=== PATIENT | male | born 1980 | race Caucasian/White ===

== ENCOUNTER 2016-09-24 22:17 | Emergency (ER) | payer OTHER ==
[~2016-09-24] VITALS: Ht 193 cm; Wt 140.6 kg
[2016-09-24 22:20] VITALS: BP 135/82
--- NOTE | 2016-09-24 23:14 | PHYS DOC ---
Past History Past Medical History: High Cholesterol Alcohol Use: Occasionally Drug Use: None Adult General Chief Complaint Chief Complaint: ABDOMINAL PAIN HPI HPI 36-year-old male presenting with a chief complaints of abdominal pain. He has had abdominal pain in the right lower quadrant intermittently for 5 days. He had a episode today while driving that lasted for a few minutes. Upon arrival to the emergency department his symptoms were improving and on my examination his pain and improved down to approximately a 3 out of 10. He describes pain is sharp intermittent present for 5 days nonradiating and without associated symptoms. He denies hematuria polyuria dysuria. He denies fevers chills nausea or vomiting. Review of systems is negative for chest pain shortness of breath nausea or vomiting. All other review of systems is negative unless otherwise noted in history of present illness. Review of Systems Review of Systems SEE ABOVE. Physical Exam Physical Exam Constitutional: Well developed, well nourished, no acute distress, non-toxic appearance. [] HENT: Normocephalic, atraumatic, bilateral external ears normal, oropharynx moist, no oral exudates, nose normal. [] Eyes: PERRLA, EOMI, conjunctiva normal, no discharge. [] Neck: Normal range of motion, no tenderness, supple, no stridor. [] Cardiovascular:Heart rate regular rhythm, no murmur [] Lungs & Thorax: Bilateral breath sounds clear to auscultation [] Abdomen: Soft nontender abdomen without rebound tenderness or guarding present. Negative McBurneys point. Negative Murillo sign. No ecchymosis present. Skin: Warm, dry, no erythema, no rash. [] Back: No tenderness, no CVA tenderness. [] Extremities: No tenderness, no cyanosis, no clubbing, ROM intact, no edema. [] Neurologic: Alert and oriented X 3, normal motor function, normal sensory function, no focal deficits noted. [] Psychologic: Affect normal, judgement normal, mood normal. [] Current Patient Data Vital Signs Vital Signs Date Time Temp Pulse Resp B/P (MAP) Pulse Ox O2 Delivery O2 Flow Rate FiO2 09/24/16 22:20 98.2 0 20 100 Room Air EKG EKG [] Radiology/Procedures Radiology/Procedures [] Course & Med Decision Making Course & Med Decision Making Pertinent Labs and Imaging studies reviewed. (See chart for details) [] 36-year-old gentleman presenting to the emergency department with right lower quadrant abdominal pain could largely improved by my examination. Afebrile. Pulse was documented as 0, this is not accurate. The patient had a pulse and was talking in clear sentences to me. The pulse was actually 75 in the emergency department. Pertinent physical exam findings showed a soft nontender abdomen. Low likelihood of appendicitis. I did have a return precautions discussion of appendicitis with the patient. His pain had largely improved without intervention. The patient was then discharged home in stable condition to follow up with their primary care physician over the next 2-3 days. They were to return if their symptoms worsened or if they were concerned for any reason. [id number] discharge instructions and return precautions were given. Patient's questions were answered to their satisfaction. Patient is comfortable plan. Dragon Disclaimer Dragon Disclaimer This chart was dictated in whole or in part using Voice Recognition software in a busy, high-work load, and often noisy Emergency Department environment. It may contain unintended and wholly unrecognized errors or omissions. Departure Departure: Impression: Primary Impression: Abdominal pain Disposition: 01 HOME, SELF-CARE Condition: STABLE Referrals: OSCAR GARRETT MD (PCP) Patient Instructions: Abdominal Pain (Nonspecific), Abdominal Pain, Possible Early Appendicitis Additional Instructions: Thank you for allowing us to participate in your care today. Followup with your primary care physician in 3 days if your symptoms do not improve. If you do not have a primary care provider you can ask for a list of our primary care providers. Return to the emergency department you have any new or concerning findings. This should be evaluated by the primary care physician and any necessary consulting services for continued management within a few days after discharge. Return to emergency room if you have any new or concerning symptoms including but not limited to fever, chills, nausea, vomiting, intractable pain, any new rashes, chest pain, shortness of air, uncontrolled bleeding, difficulty breathing, and/or vision loss. SAAD HAWKINS MD September 24, 2016 23:14
== END 2016-09-24 23:25 | disposition home or self-care (01) ==
LOC: ER 22:17
DX: R10.31 Right lower quadrant pain (principal); E78.00 Pure hypercholesterolemia, unspecified
CPT/HCPCS: 99281

== ENCOUNTER 2017-05-23 07:37 | Emergency (ER) | payer OTHER ==
[~2017-05-23] VITALS: Ht 193 cm; Wt 136.1 kg
--- NOTE | 2017-05-23 08:16 | PHYS DOC ---
Past History Past Medical History: High Cholesterol Alcohol Use: Occasionally Drug Use: None Adult General Chief Complaint Chief Complaint: MECHANICAL FALL HPI HPI 36-year-old male presenting to the emergency department today after slipping on the ice and hitting his head neck. This occurred about 30 minutes prior to arrival. He has pain in his neck and headache. His pain is a mild nonradiating intermittent pain. He denies any numbness weakness or tingling of his upper or lower extremities. He denies slurred speech or vision changes. Review of systems is negative for chest pain shortness of breath abdominal pain or any injury to his extremities. All other review of systems is negative unless otherwise noted in history of present illness. ED course: 36-year-old male presenting to the emergency department today with injury to his head and neck. On examination the patient has midline tenderness. Examination of the head shows mild swelling on the posterior occiput without any lacerations or ecchymosis or abrasions. The remainder the head shows no evidence of depressed skull fracture. Normal neurologic exam. Remainder the extremities are unremarkable. CT head and neck unremarkable. The patient was then discharged home in stable condition to follow up with their primary care physician over the next 2-3 days. They were to return if their symptoms worsened or if they were concerned for any reason. [id number] discharge instructions and return precautions were given. Patient's questions were answered to their satisfaction. Patient is comfortable with plan. Review of Systems Review of Systems SEE ABOVE. Allergies Allergies Allergies Coded Allergies Type Severity Reaction Last Updated Verified Penicillins Allergy Severe sob 05/23/17 Yes Physical Exam Physical Exam SEE ABOVE Constitutional: Well developed, well nourished, no acute distress, non-toxic appearance. [] HENT: Normocephalic, mild swelling on the occiput. See above. Bilateral external ears normal, oropharynx moist, no oral exudates, nose normal. [] Eyes: PERRLA, EOMI, conjunctiva normal, no discharge. [] Neck: Normal range of motion, mild tenderness on the cervical spine midline without step-offs abrasions or lacerations. Supple, no stridor. [] Cardiovascular:Heart rate regular rhythm, no murmur Lungs & Thorax: Bilateral breath sounds clear to auscultation [] Abdomen: Bowel sounds normal, soft, no tenderness, no masses, no pulsatile masses. [] Skin: Warm, dry, no erythema, no rash. Back: No tenderness, no CVA tenderness. [] Extremities: No tenderness, no cyanosis, no clubbing, ROM intact, no edema. Neurologic: Mental status: Awake oriented and alert x3 Cranial nerves: Extraocular movements intact, eyebrows jelena bilaterally smile symmetric, uvula elevation, shoulder shrug intact, tongue protrusion normal DTRs: 2+ Sensation: equal and normal in all extremities Strength: 5/5 in upper and lower extremities bilaterally Psychologic: Affect normal, judgement normal, mood normal. EKG EKG [] Radiology/Procedures Radiology/Procedures [] Course & Med Decision Making Course & Med Decision Making Pertinent Labs and Imaging studies reviewed. (See chart for details) [] Dragon Disclaimer Dragon Disclaimer This electronic medical record was generated, in whole or in part, using a voice recognition dictation system. Departure Departure: Impression: Primary Impression: Head injury Additional Impression: Neck pain Disposition: HOME, SELF-CARE Condition: STABLE Referrals: OSCAR GARRETT MD (PCP) Patient Instructions: Head Injury, Adult Additional Instructions: Thank you for allowing us to participate in your care today. Followup with your primary care physician in 3 days if your symptoms do not improve. Call your Primary Doctor tomorrow and inform them of your visit today. If you do not have a primary care provider you can ask for a list of our primary care providers. Return to the emergency department you have any new or concerning findings. This should be evaluated by the primary care physician and any necessary consulting services for continued management within a few days after discharge. Return to emergency room if you have any new or concerning symptoms including but not limited to fever, chills, nausea, vomiting, intractable pain, any new rashes, chest pain, shortness of air, uncontrolled bleeding, difficulty breathing, and/or vision loss. Problem Qualifiers SAAD HAWKINS MD May 23, 2017 08:16
--- NOTE | 2017-05-23 08:36 | RAD ---
CT of the head without contrast, 05/23/2017: History: Fall, headache and neck pain The ventricles are within normal limits in size. There is no shift of the midline structures. There is no evidence of acute intracranial hemorrhage or mass effect. IMPRESSION: No acute intracranial abnormality is detected. CT of the cervical spine without contrast, 05/23/2017: Noncontrast scans were obtained with multiplanar reconstructions produced. No fracture or dislocation is identified. There are several minimal posterior disc bulges. No significant spinal stenosis is evident. Several cervical lymph nodes of borderline size are noted bilaterally. IMPRESSION: No acute cervical spine abnormality is detected. PQRS Compliance Statement: One or more of the following individualized dose reduction techniques were utilized for this examination: 1. Automated exposure control 2. Adjustment of the mA and/or kV according to patient size 3. Use of iterative reconstruction technique
[2017-05-23 09:15] VITALS: BP 135/83
== END 2017-05-23 09:22 | disposition home or self-care (01) ==
LOC: ER 07:37
DX: S09.90XA Unspecified injury of head, initial encounter (principal); M54.2 Cervicalgia; E78.00 Pure hypercholesterolemia, unspecified; Z88.0 Allergy status to penicillin; W00.0XXA Fall on same level due to ice and snow, initial encounter; Y93.89 Activity, other specified; Y99.8 Other external cause status; Y92.89 Other specified places as the place of occurrence of the external cause
CPT/HCPCS: 70450; 72125; 99284-25

== ENCOUNTER 2017-05-28 17:35 | Emergency (ER) | payer OTHER ==
[~2017-05-28] VITALS: Ht 193 cm; Wt 136.1 kg
--- NOTE | 2017-05-28 19:15 | RAD ---
Exam performed: CT scan of the head without contrast. Date of Service: 05/28/2017. Comparison: CT head without contrast from 05/23/2017. Clinical History: Fall on 05/23/2017, patient hit back of the head, continued headache and dizziness. Technique: Helical acquisitions are obtained from the foramen magnum to the vertex without intravenous administration of contrast. Findings: The ventricles are midline without evidence of dilatation. Normal pool-white differentiation is maintained. There is no extra axial fluid collection, intraparenchymal hemorrhage or mass lesion. The visualized portions of the orbits, paranasal sinuses and the mastoid air cells appear clear. The calvarium is intact. Impression: 1. No acute intracranial process detected. If symptoms persist, consider evaluation with MRI of the brain. PQRS Compliance Statement: One or more of the following individualized dose reduction techniques were utilized for this examination: 1. Automated exposure control 2. Adjustment of the mA and/or kV according to patient size 3. Use of iterative reconstruction technique Electronically signed by: Yamini Graham MD (05/28/2017 7:13 PM) [facility]
--- NOTE | 2017-05-28 19:43 | PHYS DOC ---
General Chief Complaint: HEADACHE Stated Complaint: HEADACHE Time Seen by MD: 18:29 Source: patient Exam Limitations: no limitations Problems: History of Present Illness Initial Comments Patient is a 36-year-old male returning to the ED from a work comp fall injury occurring May 23. Patient was seen here after slipping on the ice at work falling backwards hitting the back of his head and neck. At that time CT of the head and cervical spine were negative and he was discharged with head injury precautions. He states that he went to work the next day and has had some intermittent headaches however today began to develop photophobia dizziness and some mild nausea. No new focal neurologic deficits no actual vomiting however as discussed with the patient new symptoms can be indicative of evolving pathology within the head. This is a work comp injury. Occurred: other Severity: moderate Injuries/Pain Location: head Context: slipped Loss of Consciousness: unsure Modifying Factors: worse with jarring, worse with movement Associated Symptoms: other Allergies: Coded Allergies: Penicillins (Verified Allergy, Severe, sob, 05/23/17) Past Medical History Medical History: other (hyperlipidemia) Surgical History: noncontributory Social History Smoker: non-smoker Alcohol: none Drugs: none Review of Systems Constitutional: denies chills, denies diaphoresis, denies fever, malaise Eyes: denies blindness, denies blurred vision, denies drainage, photophobia Ears, Nose, Mouth, Throat: see HPI, denies ear pain, denies ear discharge, denies nose pain, denies nose discharge, denies epistaxis Respiratory: denies cough, denies shortness of breath Cardiovascular: denies chest pain, denies palpitations, denies syncope Gastrointestinal: denies nausea, denies vomiting Musculoskeletal: denies back pain, denies joint swelling, denies neck pain Psychiatric/Neurological: see HPI Physical Exam General Appearance: WD/WN, no apparent distress Head: no evidence of injury (normocephalic atraumatic negative Traore sign negative raccoon eyes no ear or nose discharge no fluid behind TMs bilaterally no scalp or facial swelling no palpable bony deformity or bony tenderness) Eyes: bilateral eye normal inspection, bilateral eye PERRL, bilateral eye EOMI Ears, Nose, Mouth, Throat: hearing grossly normal, no evidence of ENT injury, no dental injury Neck: non-tender, full range of motion Cardiovascular/Respiratory: normal peripheral pulses, normal breath sounds, no respiratory distress Gastrointestinal: non tender, soft Back: no CVA tenderness, no vertebral tenderness Extremities: normal range of motion, non-tender Neurologic/Psychiatric: handle finisher II-XII nml as tested, no motor/sensory deficits, alert, normal mood/affect, oriented x 3 Lanny Coma Score Best Eye Response: (4) open spontaneously Best Verbal Response: (5) oriented Best Motor Response: (6) obeys commands [place] Total: 15 Orders, Labs, Meds PATIENT: GONZALEZ AUGUSTIN ACCOUNT: [id number] : 1980 LOCATION: ER AGE: 36 SEX: M EXAM STATUS: REG ER ORD. PHYSICIAN: TAMMIE BERMUDEZ DO REASON: fall 05/23, new dizzy/photophobia PROCEDURE: CT HEAD WO CONTRAST Exam performed: CT scan of the head without contrast. Date of Service: 05/28/2017. Comparison: CT head without contrast from 05/23/2017. Clinical History: Fall on 05/23/2017, patient hit back of the head, continued headache and dizziness. Technique: Helical acquisitions are obtained from the foramen magnum to the vertex without intravenous administration of contrast. Findings: The ventricles are midline without evidence of dilatation. Normal pool-white differentiation is maintained. There is no extra axial fluid collection, intraparenchymal hemorrhage or mass lesion. The visualized portions of the orbits, paranasal sinuses and the mastoid air cells appear clear. The calvarium is intact. Impression: 1. No acute intracranial process detected. If symptoms persist, consider evaluation with MRI of the brain. RS Compliance Statement: One or more of the following individualized dose reduction techniques were utilized for this examination: 1. Automated exposure control 2. Adjustment of the mA and/or kV according to patient size 3. Use of iterative reconstruction technique Electronically signed by: Yamini Graham MD (05/28/2017 7:13 PM) [facility] DICTATED AND SIGNED BY: YAMINI GRAHAM MD DATE: 05/28/171910 CC: OSCAR GARRETT MD; TAMMIE BERMUDEZ DO ~ I discussed concussion management and time off work. I discussed signs and symptoms to monitor as well as indications for urgent return to the department. I discussed the possibility of the need for MRI or neurologic evaluation if symptoms did not resolve or continued to progress. Patient's questions were answered they expressed agreement and understanding with the treatment plan. I advised him to follow up with her employer regarding worker's comp. Departure Time of Disposition: 19:42 Disposition: HOME, SELF-CARE Diagnosis: work comp fall injury with new symptoms, concussio Condition: STABLE Patient Instructions: Concussion and Brain Injury, [id number] Additional Instructions: Off work through June 01. Please review the patient education materials given by ED staff. No strenuous activity, athletics, or workouts until cleared by your doctor. [id number] Tylenol for symptom control. Remain in a cool temperature dimly lit environment avoiding screen time for optimal symptom control. Follow-up with your doctor Sunday for recheck and further activity restriction modifications. If no improvement may require MRI evaluation for neurologic evaluation. Follow-up with your employer regarding Worker's Compensation. Return to ED with new or changing symptoms. TAMMIE BERMUDEZ DO May 28, 2017 19:43
[2017-05-28 19:58] VITALS: BP 141/95
== END 2017-05-28 19:59 | disposition home or self-care (01) ==
LOC: ER 17:35
DX: S06.0X0A Concussion without loss of consciousness, initial encounter (principal); E78.5 Hyperlipidemia, unspecified; Z88.0 Allergy status to penicillin; W00.0XXA Fall on same level due to ice and snow, initial encounter; Y93.89 Activity, other specified; Y99.0 Civilian activity done for income or pay; Y92.89 Other specified places as the place of occurrence of the external cause
CPT/HCPCS: 70450; 99284-25